=== PATIENT | male | born 1990 ===

== ENCOUNTER 2016-06-22 02:31 | Emergency (ER) | payer OTHER ==
[~2016-06-22] VITALS: Ht 188 cm; Wt 113.9 kg
--- NOTE | 2016-06-22 02:57 | PHYS DOC ---
General Chief Complaint: LACERATION/AVULSION Stated Complaint: LAC Time Seen by MD: 02:53 Source: patient, police Problems: History of Present Illness Initial Comments Patient here with correctional officers for laceration the right arm. Patient says about midnight tonight he used a razor blade, previously used to shave himself, to cut himself in his right antecubital region. He says he was depressed and did so in an episode of self-harm. He was identified and taken to shelter clinic. They said they were able to stop the bleeding, but sent the patient here for further evaluation and wound closure. At this time, the patient denies no complaints of pain at the site. He has no complaints of distal weakness numbness or tingling within the hand or forearm. There is no active bleeding and a dressing has been placed over the wound secured with crate. He has no other injuries noted or reported at this time. Other than care at the shelter there's been nothing done for this prior to arrival in the ED and no fractures noted increase or decrease any symptoms he might have. Patient's past history is remarkable for what he describes depression and schizophrenia. He is on Remeron and other medications for this. He also has hypertension and high cholesterol. He is a nonsmoker and nonuser of ethanol. He reports his last tetanus is within 5 years. He doesn't know his own HIV or hepatitis status, but apparently nursing staff took a call from shelter staff indicated he had been tested and was negative. Past Medical History Medical History: high cholesterol, hypertension Psychosocial History: depression, schizophrenia Social History Smoker: non-smoker Alcohol: none Review of Systems Constitutional: no symptoms reported Musculoskeletal: see HPI Skin: see HPI Psychiatric/Neurological: no symptoms reported Physical Exam General Appearance: WD/WN, no apparent distress Extremities: non-tender, other Neurologic/Psychiatric: no motor/sensory deficits, normal mood/affect, oriented x 3 Skin: normal color Comments Generally this a well-developed well-nourished black male in no acute distress. Vitals are as noted. Pertinent signs on physical exam shows patient have proximally 8 cm total length T-shaped laceration over the anterior aspect of the right antecubital fossa. The wound is explored and appears to involve skin and subcutaneous tissue only. There is no active bleeding. There is no tendons visualized. He has good full range of motion of the elbow to flexion and extension without difficulty. He has good radial ulnar and median nerve function distally. Good radial and ulnar pulses. Capillary refill is intact. Sensation is intact. He has good flexion and extension of the wrist and digits at all sites, and good apposition of the thumb. He has some further very superficial linear scratches extending down the volar forearm from the site of the laceration. These will not require closure. There is no other injuries noted. Patient hasn't mildly flat affect but is alert, oriented, cooperative with exam. Remainder of physical exam is quickly unremarkable. Orders, Labs, Meds Old charts note no prior ER visits within the current system. We did receive a faxed medication list for the patient. His medications including her troponin, propranolol, Remeron, benztropine, amlodipine, and IM Haldol every week. 0300 Patient resting comfortably ER. I discussed with the patient need for closure. He voices understanding and was agreeable to same. Under sterile technique and 1% lidocaine without epinephrine anesthesia, the wound was explored fine skin is Cutaneous tissue involvement only. There is no obvious vascular or tendon involvement. He has disc good distal function is previously described. Laceration was copiously irrigated with 2 bottles of spray saline. The center of the T-shaped laceration was approximated with a corner stitch, and the remaining limbs closed with a total of 10 sutures of 3-0 nylon. Patient tolerated the procedure well. I discussed with the patient in view of corrections officers home care of this laceration. This doesn't seem like very contaminated wound, the wound edges appeared clean and not macerated or dirty, and I think with good irrigation we can try to hold off antibiotics. I will go ahead and did have a posterior splint to allow the wound area to rest as a sutures initially begin to heal up. We discussed home care including rest, keep the areas clean and dry with soap and water, and close follow-up in the Gen[facility] clinic for signs of infection. He may use Advil or Tylenol as needed for pain as suggested by the shelter as well. I suggested he take a sutures out in 10-14 days, allowing extensive time for wound healing over a slight subjective significant motion. He voices understanding the need to follow-up with the shelter clinic as well as to return the ER sooner as needed if worsening anyway. I also verified is currently receiving mental health services in shelter. He says is currently seen a counselor in getting his medications, and I emphasized the importance of his further mental health care. Patient voices understanding of the discharge instructions, and will provide appropriate instructions to shelter staff as well. Patient's been extreme and cooperative during his stay. He looks well, in no acute discomfort distress, okay for discharge back to shelter this time. DEDRICK HOOKS MD Jun 22, 2016 02:57
[2016-06-22 03:11] VITALS: BP 135/76
== END 2016-06-22 03:11 | disposition home or self-care (01) ==
LOC: ER 02:31
DX: S41.111A Laceration without foreign body of right upper arm, initial encounter (principal); E78.00 Pure hypercholesterolemia, unspecified; I10 Essential (primary) hypertension; W45.8XXA Other foreign body or object entering through skin, initial encounter; Y93.89 Activity, other specified; Y99.8 Other external cause status; Y92.89 Other specified places as the place of occurrence of the external cause
CPT/HCPCS: 12004; 99283-25